=== PATIENT | female | born 1960 | race Caucasian/White ===

== ENCOUNTER 2022-09-22 15:55 | Emergency (ER) | payer OTHER ==
[~2022-09-22] VITALS: Ht 154.9 cm; Wt 78.0 kg
[2022-09-22] VITALS (13 sets, daily range): BP systolic 102–161; BP diastolic 55–140
[2022-09-22] MEDS ORDERED: METHOCARBAMOL500 MG PO (19:24)
== END 2022-09-22 19:48 | disposition home or self-care (01) | DRG 563 ==
LOC: ED 15:55
DX: S93.401A Sprain of unspecified ligament of right ankle, initial encounter (principal); M54.50 Low back pain, unspecified; S80.212A Abrasion, left knee, initial encounter; W01.0XXA Fall on same level from slipping, tripping and stumbling without subsequent striking against object, initial encounter